=== PATIENT | female | born 1955 | race Caucasian/White ===

== ENCOUNTER 2024-05-09 19:05 | Outpatient (CLI) | payer OTHER, SELFPAY | END 2024-05-09 19:06 | disposition home or self-care (01) | PROVIDERS: PCP Emergency Medicine; Visit Provider Emergency Medicine | DX: R41.89 Other symptoms and signs involving cognitive functions and awareness (principal); I10 Essential (primary) hypertension | CPT/HCPCS: 80053; 80061; 82607; 84443 ==

== ENCOUNTER 2024-06-06 19:38 | Outpatient (CLI) | payer OTHER, SELFPAY | END 2024-06-06 19:39 | disposition home or self-care (01) | LOC: LKVREF 19:39 | PROVIDERS: PCP Emergency Medicine; Visit Provider Emergency Medicine | DX: N39.0 Urinary tract infection, site not specified (principal); E87.6 Hypokalemia; N18.32 Chronic kidney disease, stage 3b | CPT/HCPCS: 87086 ==